=== PATIENT | male | born 1995 | race Caucasian/White ===

== ENCOUNTER 2019-12-08 21:00 | Emergency (ER) | payer BC ==
--- NOTE | 2019-12-08 22:07 | EDM.PDOC ---
ED HPI GENERAL MEDICAL PROBLEM - General Stated Complaint: Headache, nasal congestion Time Seen by Provider: 12/08/19 22:02 Source of Information: Reports: Patient History Limitations: Reports: No Limitations - History of Present Illness INITIAL COMMENTS - FREE TEXT/NARRATIVE: Patient comes emergency department today from home with concerns of a headache and COVID exposure. 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 He was told that he did not have to quarantine as he was not in close contact although he states that he has been. For the past 2 weeks he has been exposed to these people on a daily basis. He has had sinus congestion drainage and pressure for 2 weeks. He has a dry non-productive cough in the morning that resolves throughout the day. He has had a minimal cough. No loss of taste or smell. No abdominal pain. No diarrhea. He relates that he had a fever highest of 99.4. No chills. At about 5:00 he has this unrelenting pounding frontal headache. Positive photophobia no phonophobia. No visual disturbances. No paresthesias of his upper or lower extremities. No change in the functionality of his upper or lower extremities. No recent falls trauma or head injury. His main complaint is his headache that is just unrelenting from 5:00 this afternoon. He has tried ibuprofen without improvement. His headache was initially an 8 and he took some ibuprofen as his headache has improved to 3/10. Has had close contact COVID. Has some symptoms of COVID. No body aches malaise fatigue. Good appetite. - Related Data Allergies Allergy/AdvReac Type Severity Reaction Status Date / Time Penicillins Allergy Cannot Verified 12/08/19 22:28 Remember ED ROS GENERAL - Review of Systems Review Of Systems: Comprehensive ROS is negative, except as noted in HPI. - Physical Exam Exam: See Below Exam Limited By: No Limitations General Appearance: Alert, WD/WN, No Apparent Distress Eye Exam: Bilateral Eye: EOMI, PERRL Ears: Normal External Exam, Normal Canal, Normal TMs Nose: No Blood, Clear Rhinorrhea. No: Normal Inspection (The patients nasal turbinates are quite swollen erythematous with a copious amount of clear rhinnorhea. ) Throat/Mouth: Normal Inspection, Normal Lips, Normal Teeth, Normal Gums, Normal Oropharynx, Normal Voice, No Airway Compromise Head Exam: Atraumatic, Normocephalic Neck: Normal Inspection, Supple, Non-Tender, Full Range of Motion Respiratory/Chest: No Respiratory Distress, Lungs Clear, Normal Breath Sounds, No Accessory Muscle Use, Chest Non-Tender Cardiovascular: Normal Peripheral Pulses, Regular Rate, Rhythm GI/Abdominal: Normal Bowel Sounds, Soft, Non-Tender, No Distention (Male) Exam: Deferred Rectal (Males) Exam: Deferred Neuro Exam (Abbreviated): Alert, Oriented, Normal Cognition, No Motor/Sensory Deficits Back Exam: Normal Inspection, Full Range of Motion Extremities: Normal Inspection, Normal Range of Motion, Non-Tender, No Pedal Edema, Normal Capillary Refill Psychiatric: Normal Affect, Normal Mood Skin Exam: Warm, Dry, Intact, Normal Color, No Rash Course - Orders/Labs/Meds Orders: Active Orders 24 hr Category Date Time Status predniSONE Med 12/08/19 22:41 Once 60 mg PO ONETIME ONE predniSONE [Take Home: predniSONE 20 MG, 2 Tab Pack] Med 12/08/19 22:41 Once 2 packet PO ONETIME ONE Labs: Laboratory Tests 12/08/19 Range/Units 22:00 SARS CoV-2 RNA Rapid SHUKRI Negative (NEGATIVE) - Re-Assessments/Exams Free Text/Narrative Re-Assessment/Exam: 12/08/19 22:36 COVID negative. His headache is much improved upon arrival than when he was at home. This is really the sequelae of acute sinusitis and sinus headache by physical exam. His COVID is negative. We will treat him with saline nasal rinse fluticasone and steroids for the next couple of days. He can also use [id number] Sudafed. Discharge directions as below are explained to the patient he was comfortable with this plan his questions are answered. Departure - Departure Time of Disposition: 22:41 Disposition: Home, Self-Care 01 Clinical Impression: Sinus headache Sinusitis, acute Qualifiers: Sinusitis location: unspecified location Recurrence: not specified as recurrent Qualified Code(s): J01.90 - Acute sinusitis, unspecified - Discharge Information Instructions: How to Perform a Sinus Rinse, [id number], Sinusitis, Adult, [id number] Additional Instructions: Saline nasal rinse such as an [id number] product like [place] pot twice daily. Minutes later. Flonase 1 spray each nostril twice daily for 10 days. Then 1 spray each nostril until symptoms completely resolved. Tylenol and/or ibuprofen as for headache. You may also use Sudafed or other nasal decongestants to help with your sinus headache. Prednisone 60 mg a day for the next 5 days. First dose given in the ER. Second dose for Tuesday given and a prescription given to the patient as well. Return to the emergency department new or worsening symptoms. Follow-up primary care provider in the next 4 to 6 days if not improving sooner if worse. - My Orders Last 24 Hours: My Active Orders 12/08/19 22:41 predniSONE 60 mg PO ONETIME ONE predniSONE [Take Home: predniSONE 20 MG, 2 Tab Pack] 2 packet PO ONETIME ONE - Assessment/Plan Last 24 Hours: My Active Orders 12/08/19 22:41 predniSONE 60 mg PO ONETIME ONE predniSONE [Take Home: predniSONE 20 MG, 2 Tab Pack] 2 packet PO ONETIME ONE
[2019-12-08] MEDS ORDERED: Take Home: predniSONE 20 MG, 2 Tab Pack PO ONE (22:41)
[2019-12-08] MEDS ORDERED: predniSONE 20 MG Tab PO ONE (22:41)
== END 2019-12-08 22:55 | disposition home or self-care (01) ==
LOC: VM.ED 21:00
DX: J01.90 Acute sinusitis, unspecified (principal); Z88.0 Allergy status to penicillin; Z20.828 Contact with and (suspected) exposure to other viral communicable diseases
CPT/HCPCS: 99283; 99284; J7512; U0002